=== PATIENT | female | born 2005 | race Two or more races ===

== ENCOUNTER 2024-03-20 01:46 | Emergency (ER) | payer SELFPAY ==
[~2024-03-20] VITALS: Ht 170.2 cm; Wt 80.0 kg
[2024-03-20 01:48] VITALS: BP 130/77; PULSE 71; RESP 18; TEMP 98.3; O2SAT 100
[2024-03-20] MEDS ORDERED: HYDR50TA32 PO (02:21)
== END 2024-03-20 02:34 | disposition home or self-care (01) ==
LOC: ER 01:46 → EDBD 01:46 → ER 02:30
DX: F41.0 Panic disorder [episodic paroxysmal anxiety] (principal)